=== PATIENT | female | born 1975 | race Caucasian/White ===

== ENCOUNTER 2016-05-31 08:10 | Observation (INO) | payer MEDICARE, MEDICAID ==
--- NOTE | 2016-05-31 08:44 | EDM.PDOC ---
[id number]: 05/31/16 08:38 Source of Information: Reports: Patient, EMS, Family History Limitations: Reports: No limitations - History of Present Illness INITIAL COMMENTS - FREE TEXT/NARRATIVE: 40-year-old female was walking along the edge of a wall heading to work when she accidentally stepped off the wall and fell onto her left side. The fall was about 4 feet and she fell onto a grassy but firm surface. She has localized pain over the left lateral chest wall where her elbow hit her side. No loss of consciousness, no neck pain back pain extremity pain, she has some pain with breathing but not short of breath. She is very anxious. Denies abdominal pain, nausea or vomiting. Onset: sudden Duration: Hour(s): (Within the last 2 hours) Location: Reports: chest Severity: moderate Worsens with: Reports: Breathing Associated Symptoms: Reports: denies other symptoms - Related Data Allergies Allergy/AdvReac Type Severity Reaction Status Date / Time No Known Allergies Allergy Verified 05/31/16 08:19 Home Meds: Home Meds Divalproex Sodium [Depakote] 500 mg PO BIDMEALS 05/31/16 [History] lamoTRIgine [LaMICtal] 200 mg PO BIDMEALS 05/31/16 [History] Past Medical History HEENT History: Reports: Impaired vision Neurological History: Reports: Seizure Other Neuro History: since age 1 Social & Family History - Tobacco Use Smoking Status *Q: Never Smoker Second Hand Smoke Exposure: No - Caffeine Use Caffeine Use: Reports: None - Recreational Drug Use Recreational Drug Use: No ED ROS GENERAL - Review of Systems Review Of Systems: See Below Constitutional: Denies: fever, chills HEENT: Reports: No symptoms Respiratory: Reports: Pleuritic Chest Pain Cardiovascular: Reports: Chest pain. Denies: Palpitations GI/Abdominal: Denies: Abdominal pain, Nausea, Vomiting : Reports: no symptoms Neurological: Reports: No Symptoms Psychiatric: Reports: Other (Has chronic cognitive disabilities) ED EXAM, GENERAL - Physical Exam Exam: See Below Exam Limited By: No limitations General Appearance: alert, anxious, mild distress (Appears uncomfortable) Neck: normal inspection, supple Respiratory/Chest: no respiratory distress, lungs clear, other (Localized chest wall pain laterally, no bruising or crepitus) Cardiovascular: regular rate, rhythm. No: tachycardia GI/Abdominal: soft, non tender Extremities: normal inspection Neurological: alert, oriented Psychiatric: anxious Skin Exam: Warm, Dry Course - Vital Signs Last Recorded V/S: Last Vital Signs Temp 97.6 F 05/31/16 11:40 Pulse 85 05/31/16 11:40 Resp 24 H 05/31/16 11:40 BP 118/77 05/31/16 11:40 Pulse Ox 98 05/31/16 11:40 - Orders/Labs/Meds Orders: Active Orders 24 hr Category Date Time Status Chest Abdomen Pelvis w Cont [CT] Stat Exams 05/31/16 09:20 Taken Ribs 2V w Chest Lt [CR] Stat Exams 05/31/16 08:43 Taken Medication Orders Acetaminophen (Tylenol) 650 mg PO Q4H PRN PRN Reason: Pain (Mild 1-3)/fever Divalproex Sodium (Divalproex Sodium) 500 mg PO BIDMEALS LOTUS Docusate Sodium (Colace) 100 mg PO BID PRN PRN Reason: Constipation Hydromorphone HCl (Dilaudid) 0.5 mg IVPUSH Q2H PRN PRN Reason: Pain Lactated Ringer's (Ringers, Lactated) 1,000 mls @ 125 mls/hr IV ASDIRECTED LOTUS Ibuprofen (Motrin) 600 mg PO Q6H PRN PRN Reason: Pain/Fever Ketorolac Tromethamine (Toradol) 30 mg IM Q6H PRN PRN Reason: Pain (moderate 4-6) Lamotrigine (Lamotrigine) 200 mg PO BIDMEALS LOTUS Lorazepam (Ativan) 0.5 mg IVPUSH Q2H PRN PRN Reason: Anxiety Magnesium Hydroxide (Milk Of Magnesia) 30 ml PO Q12H PRN PRN Reason: Constipation Ondansetron HCl (Zofran) 4 mg IV Q4H PRN PRN Reason: Nausea/Vomiting Oxycodone HCl (Oxycodone) 5 mg PO Q4H PRN PRN Reason: Pain (moderate 4-6) Polyethylene Glycol (Miralax) 17 gm PO DAILY PRN PRN Reason: Constipation Sodium Chloride (Saline Flush) 10 ml FLUSH ASDIRECTED PRN PRN Reason: Keep Vein Open Labs: Laboratory Tests 05/31/16 05/31/16 Range/Units 09:42 09:42 WBC 9.5 (4.5-11.0) K/uL RBC 4.51 (3.30-5.50) M/uL Hgb 13.8 (12.0-15.0) g/dL Hct 41.9 (36.0-48.0) % MCV 93 (80-98) fL MCH 31 (27-31) pg MCHC 33 (32-36) % Plt Count 248 (150-400) K/uL Neut % (Auto) 73 H (36-66) % Lymph % (Auto) 16 L (24-44) % [place] % (Auto) 10 H (2-6) % Eos % (Auto) 1 L (2-4) % Baso % (Auto) 0 (0-1) % Sodium 144 (140-148) mmol/L Potassium 4.0 (3.6-5.2) mmol/L Chloride 108 (100-108) mmol/L Carbon Dioxide 27 (21-32) mmol/L Anion Gap 8.6 (5.0-14.0) mmol/L BUN 18 (7-18) mg/dL Creatinine 0.9 (0.6-1.0) mg/dL Est Cr Clr Drug Dosing 73.27 mL/min Estimated GFR (MDRD) > 60 (>60) Glucose 127 H (74-106) mg/dL Calcium 8.6 (8.5-10.1) mg/dL Meds: Medications Generic Name Dose Route Start Last Admin Trade Name Freq PRN Reason Stop Dose Admin Acetaminophen 650 mg 05/31/16 13:46 Tylenol PO Q4H PRN Pain (Mild 1-3)/fever Divalproex Sodium 500 mg 05/31/16 17:00 Divalproex Sodium PO BIDMEALS LOTUS Docusate Sodium 100 mg 05/31/16 13:46 Colace PO BID PRN Constipation Hydromorphone HCl 0.5 mg 05/31/16 13:46 Dilaudid IVPUSH Q2H PRN Pain Lactated Ringer's 1,000 mls @ 125 mls/hr 05/31/16 13:46 Ringers, Lactated IV ASDIRECTED LOTUS Ibuprofen 600 mg 05/31/16 13:46 Motrin PO Q6H PRN Pain/Fever Ketorolac Tromethamine 30 mg 05/31/16 13:46 Toradol IM Q6H PRN Pain (moderate 4-6) Lamotrigine 200 mg 05/31/16 17:00 Lamotrigine PO BIDMEALS LOTUS Lorazepam 0.5 mg 05/31/16 13:46 Ativan IVPUSH Q2H PRN Anxiety Magnesium Hydroxide 30 ml 05/31/16 13:46 Milk Of Magnesia PO Q12H PRN Constipation Ondansetron HCl 4 mg 05/31/16 13:46 Zofran IV Q4H PRN Nausea/Vomiting Oxycodone HCl 5 mg 05/31/16 13:46 Oxycodone PO Q4H PRN Pain (moderate 4-6) Polyethylene Glycol 17 gm 05/31/16 13:46 Miralax PO DAILY PRN Constipation Sodium Chloride 10 ml 05/31/16 13:46 Saline Flush FLUSH ASDIRECTED PRN Keep Vein Open Discontinued Medications Generic Name Dose Route Start Last Admin Trade Name Freq PRN Reason Stop Dose Admin Hydromorphone HCl 0.5 mg 05/31/16 09:20 05/31/16 09:43 Dilaudid IVPUSH 05/31/16 09:21 0.5 mg ONETIME ONE Administration Hydromorphone HCl 0.5 mg 05/31/16 12:12 05/31/16 12:26 Dilaudid IVPUSH 05/31/16 12:13 0.5 mg ONETIME ONE Administration Sodium Chloride 75 mls @ 3.3 mls/sec 05/31/16 10:00 05/31/16 10:15 Normal Saline IV 3 mls/sec ASDIRECTED LOTUS Administration Sodium Chloride 1,000 mls @ 250 mls/hr 05/31/16 11:15 05/31/16 11:23 Normal Saline IV 250 mls/hr ASDIRECTED LOTUS Administration Iopamidol 110 ml 05/31/16 09:48 05/31/16 10:16 Isovue-300 (61%) IV 06/01/16 09:49 110 ml . DIRECTED PRN Administration RADIOLOGY EXAM Ondansetron HCl 4 mg 05/31/16 09:21 05/31/16 09:41 Zofran IVPUSH 05/31/16 09:22 4 mg ONETIME ONE Administration Ondansetron HCl 4 mg 05/31/16 12:12 05/31/16 12:22 Zofran IVPUSH 05/31/16 12:13 4 mg ONETIME ONE Administration Sodium Chloride 10 ml 05/31/16 09:19 Saline Flush FLUSH ASDIRECTED PRN Keep Vein Open Sodium Chloride 10 ml 05/31/16 09:48 05/31/16 09:54 Saline Flush FLUSH 05/31/16 09:49 10 ml ONETIME ONE Administration - Re-Assessments/Exams Free Text/Narrative Re-Assessment/Exam: 05/31/16 08:47 A chest x-ray with a focus on the left ribs was obtained. 05/31/16 09:28 Patient remained stable but uncomfortable. X-ray revealed a small pulmonary contusion laterally with likely at least 3 lateral rib fractures. Because of the apparent significant injury a CT scan of the chest abdomen and pelvis will follow. 05/31/16 10:58 CT scan confirms the fractures ribs 5 through 9. There is a "very small" hemopneumothorax and no other findings of injury. CBC and BMP were normal. Patient remained stable but uncomfortable. There is no need for hospitalization at this time unless the patient's parents are uncomfortable with caring for her and they want to try to take her home. She'll be given a sling for her left arm for comfort, 20 hydrocodone and 30 500 mg Naprosyn for pain control and should recheck Thursday or Thursday. 05/31/16 11:14 Tried to get the patient prepared for discharge and she just couldn't handle it well. She became pale, diaphoretic and very anxious. I don't think she'll be able to tolerate treatment on an outpatient basis. I discussed this with Dr. Millan of the hospitalist service and he agreed to see her to consider admission. Departure - Departure Time of Disposition: 13:42 Disposition: Admitted As Inpatient 64 Condition: fair Clinical Impression: Multiple rib fractures Qualifiers: Encounter type: initial encounter Fracture type: closed Laterality: left Qualified Code(s): S22.42XA - Multiple fractures of ribs, left side, initial encounter for closed fracture Left pulmonary contusion Qualifiers: Encounter type: initial encounter Qualified Code(s): S27.321A - Contusion of lung, unilateral, initial encounter - My Orders Last 24 Hours: My Active Orders 05/31/16 08:43 Ribs 2V w Chest Lt [CR] Stat 05/31/16 09:20 Chest Abdomen Pelvis w Cont [CT] Stat - Assessment/Plan Last 24 Hours: My Active Orders 05/31/16 08:43 Ribs 2V w Chest Lt [CR] Stat 05/31/16 09:20 Chest Abdomen Pelvis w Cont [CT] Stat
[2016-05-31] MEDS ORDERED: Sodium Chloride 0.9% 10 ML Syringe FLUSH PRN ×2 (09:19→13:46)
[2016-05-31] MEDS ORDERED: HYDROmorphone 0.5 MG/0.5 ML Syringe IVPUSH ONE ×2 (09:20→12:12)
[2016-05-31] MEDS ORDERED: Ondansetron 4 MG/2 ML SDV IVPUSH ONE ×2 (09:21→12:12)
[2016-05-31] MEDS ORDERED: Iopamidol 612 MG/ML 150 ML Bottle IV PRN (09:48)
[2016-05-31] MEDS ORDERED: Sodium Chloride 0.9% 10 ML Syringe FLUSH ONE (09:48)
[2016-05-31] MEDS ORDERED: Sodium Chloride 0.9% 75 ML IV SCH (10:00)
[2016-05-31] MEDS ORDERED: Sodium Chloride 0.9% 1,000 ML IV SCH (11:15)
--- NOTE | 2016-05-31 13:12 | PCM.HP ---
H&P History of Present Illness - General Date of Service: 05/31/16 Admit Problem/Dx: Admission Diagnosis/Problem Admission Diagnosis/Problem Fracture of multiple ribs Source of Information: Patient, Family, Provider, RN notes reviewed History Limitations: Reports: No limitations - History of Present Illness Initial Comments - Free Text/Narative: This patient is a 40-year-old woman who is admitted through the emergency department observation status for further management of 4 left-sided rib fractures as well as a small hydropneumothorax. She experienced a 4 foot fall early this morning with severe pain. She does have a history of seizure disorder but adamantly denies that she had any seizure, simply that she fell. CT scan of the chest abdomen shows evidence of for left-sided rib fractures 6 through 9. Associated with this is a small hydropneumothorax. Because of severe pain she's unable to be cared for at home, she became vagal when they attempted to give her up. - Related Data Allergies/Adverse Reactions: Allergies Allergy/AdvReac Type Severity Reaction Status Date / Time No Known Allergies Allergy Verified 05/31/16 08:19 Home Medications: Home Meds Divalproex Sodium [Depakote] 500 mg PO BIDMEALS 05/31/16 [History] lamoTRIgine [LaMICtal] 200 mg PO BIDMEALS 05/31/16 [History] Past Medical History HEENT History: Reports: Impaired vision Neurological History: Reports: Seizure Other Neuro History: since age 1 Social & Family History - Tobacco Use Smoking Status *Q: Never Smoker Second Hand Smoke Exposure: No - Caffeine Use Caffeine Use: Reports: None - Recreational Drug Use Recreational Drug Use: No H&P Review of Systems - Review of Systems: Review Of Systems: See Below General: Reports: no symptoms HEENT: Reports: no symptoms Pulmonary: Reports: No Symptoms Cardiovascular: Reports: chest pain (Left lateral chest wall). Denies: palpitations, dyspnea on exertion, orthopnea, PND, edema, lightheadedness, syncope Gastrointestinal: Reports: No symptoms Genitourinary: Reports: no symptoms Musculoskeletal: Reports: no symptoms Skin: Reports: no symptoms Psychiatric: Reports: no symptoms Neurological: Reports: No Symptoms Hematologic/Lymphatic: Reports: no symptoms Immunologic: Reports: no symptoms Exam - Exam Exam: See Below - Vital Signs Vital Signs: Last Vital Signs Temp 97.2 F 05/31/16 08:14 Pulse 82 05/31/16 10:44 Resp 15 05/31/16 10:44 BP 118/73 05/31/16 10:44 Pulse Ox 93 L 05/31/16 10:44 Weight: 160 lb - Exam General: alert, oriented, cooperative, moderate distress HEENT: Conjunctiva clear, EOMI, Hearing intact, Mucosa moist & pink, Nares patent, Normal nasal septum, Posterior pharynx clear, Pupils equal, Pupils reactive Neck: supple, trachea midline, 2 Lungs: Clear to auscultation, Normal respiratory effort Cardiovascular: regular rate, regular rhythm, normal S1, normal S2. No: systolic murmur, diastolic murmur Abdomen: normal bowel sounds, soft Back Exam: normal inspection, full range of motion, NT Extremities: normal inspection, normal pulses. No: edema Skin: warm, dry, intact Neurological: cranial nerves intact, strength equal bilateral, normal speech, normal tone, sensation intact. No: focal deficit Neuro Extensive - Mental Status: alert, oriented x3, normal mood/affect, memory intact. No: normal cognition (Congenital cognitive impairment) - Patient Data Lab Results last 24 hrs: Laboratory Results - last 24 hr 05/31/16 05/31/16 Range/Units 09:42 09:42 WBC 9.5 (4.5-11.0) K/uL RBC 4.51 (3.30-5.50) M/uL Hgb 13.8 (12.0-15.0) g/dL Hct 41.9 (36.0-48.0) % MCV 93 (80-98) fL MCH 31 (27-31) pg MCHC 33 (32-36) % Plt Count 248 (150-400) K/uL Neut % (Auto) 73 H (36-66) % Lymph % (Auto) 16 L (24-44) % [place] % (Auto) 10 H (2-6) % Eos % (Auto) 1 L (2-4) % Baso % (Auto) 0 (0-1) % Sodium 144 (140-148) mmol/L Potassium 4.0 (3.6-5.2) mmol/L Chloride 108 (100-108) mmol/L Carbon Dioxide 27 (21-32) mmol/L Anion Gap 8.6 (5.0-14.0) mmol/L BUN 18 (7-18) mg/dL Creatinine 0.9 (0.6-1.0) mg/dL Est Cr Clr Drug Dosing 73.27 mL/min Estimated GFR (MDRD) > 60 (>60) Glucose 127 H (74-106) mg/dL Calcium 8.6 (8.5-10.1) mg/dL Result Diagrams: 05/31/16 09:42 05/31/16 09:42 *Q Meaningful Use (ADM) - VTE *Q VTE Criteria *Q: - VTE Risk Assess *Q Each Risk Factor Represents 1 Point: Age 41 - 59 years Total Score 1 Point Risk Factors: 1 Each Risk Factor Represents 2 Points: None Total Score 2 Point Risk Factors: 0 Each Risk Factor Represents 3 Points: None Total Score 3 Point Risk Factors: 0 Each Risk Factor Represents 5 Points: None Total Score 5 Point Risk Factors: 0 Venous Thromboembolism Risk Factor Score *Q: 1 - Stroke *Q Stroke Criteria *Q: - AMI *Q AMI Criteria *Q: Problem List Initiated/Reviewed/Updated: Yes Orders Last 24hrs: Active Orders 24 hr Category Date Time Status Patient Status Manage Transfer [TRANSFER] Routine ADT 05/31/16 12:51 Ordered Chest Abdomen Pelvis w Cont [CT] Stat Exams 05/31/16 09:20 Taken Ribs 2V w Chest Lt [CR] Stat Exams 05/31/16 08:43 Taken Iopamidol [Isovue-300 (61%)] Med 05/31/16 09:48 Active 110 ml IV . DIRECTED PRN Sodium Chloride 0.9% [Normal Saline] 1,000 ml Med 05/31/16 11:15 Active IV ASDIRECTED Sodium Chloride 0.9% [Normal Saline] 75 ml Med 05/31/16 10:00 Active IV ASDIRECTED Sodium Chloride 0.9% [Saline Flush] Med 05/31/16 09:19 Active 10 ml FLUSH ASDIRECTED PRN DME for Discharge [COMM] Stat Oth 05/31/16 11:03 Ordered Saline Lock Insert [OM.PC] Routine Oth 05/31/16 09:19 Ordered Resuscitation Status Routine Resus Stat 05/31/16 12:53 Ordered Medication Orders Sodium Chloride (Normal Saline) 75 mls @ 3.3 mls/sec IV ASDIRECTED LOTUS Last Admin: 05/31/16 10:15 Dose: 3 mls/sec Sodium Chloride (Normal Saline) 1,000 mls @ 250 mls/hr IV ASDIRECTED LOTUS Last Admin: 05/31/16 11:23 Dose: 250 mls/hr Iopamidol (Isovue-300 (61%)) 110 ml IV . DIRECTED PRN PRN Reason: RADIOLOGY EXAM Stop: 06/01/16 09:49 Last Admin: 05/31/16 10:16 Dose: 110 ml Sodium Chloride (Saline Flush) 10 ml FLUSH ASDIRECTED PRN PRN Reason: Keep Vein Open Assessment/Plan Comment:: ASSESSMENT AND PLAN TRAUMA RESULTING IN 4 LEFT RIB FRACTURES AND A SMALL HYDROPNEUMOTHORAX-patient experiencing severe pain related to her chest wall injury, respiratory status is stable. -Pain medication as needed -Repeat chest x-ray in a.m. for followup of small hydropneumothorax -Consult Dr. Youssef in a.m. for surgical followup SEIZURE DISORDER -Continue outpatient medical regimen CONGENITAL COGNITIVE IMPAIRMENT MAINTENANCE ISSUES -DVT prophylaxis; SCUDs -GI prophylaxis; not indicated -Nichols catheter; not indicated -Nutrition; regular diet -Nicotinic dependence; not required CODE STATUS-FULL CODE ADMISSION STATUS-this patient will be admitted to observation status, expect no more than a one night hospital stay for evaluation and management of problems as outlined above. DISPOSITION-anticipate discharge to home after the hospital stay. PRIMARY CARE PROVIDER-
[2016-05-31] MEDS ORDERED: Polyethylene Glycol 3350 Powder 17 GM Packet PO PRN (13:46)
[2016-05-31] MEDS ORDERED: Magnesium Hydroxide 400 MG/5 ML Susp 30 ML Cup PO PRN (13:46)
[2016-05-31] MEDS ORDERED: Docusate Sodium 100 MG Cap PO PRN (13:46)
[2016-05-31] MEDS ORDERED: Ibuprofen 600 MG Tab PO PRN (13:46)
[2016-05-31] MEDS ORDERED: Acetaminophen 325 MG Tab PO PRN (13:46)
[2016-05-31] MEDS ORDERED: Ketorolac 30 MG/ML SDV IM PRN (13:46)
[2016-05-31] MEDS: Lactated Ringers 1,000 ML IV SCH ×2 (14:41→22:54)
[2016-05-31] MEDS: HYDROmorphone 0.5 MG/0.5 ML Syringe IVPUSH PRN ×2 (17:15→19:34)
[2016-05-31] MEDS: lamoTRIgine 100 MG Tab PO SCH (17:16)
[2016-05-31] MEDS: Divalproex Sodium Delayed-Release 250 MG Tab.CR PO SCH (17:16)
[2016-05-31] MEDS: Ondansetron 4 MG/2 ML SDV IV PRN (17:43)
[2016-05-31] MEDS: Ketorolac 30 MG/ML SDV IVPUSH PRN (20:14)
[2016-05-31] MEDS: oxyCODONE 5 MG Tab PO PRN (22:48)
[2016-05-31] MEDS: LORazepam 2 MG/ML MDV IVPUSH PRN (22:49)
[2016-06-01] MEDS: Ketorolac 30 MG/ML SDV IVPUSH PRN ×3 (03:52→16:19)
[2016-06-01] MEDS: oxyCODONE 5 MG Tab PO PRN ×2 (03:52→08:23)
[2016-06-01] MEDS: LORazepam 2 MG/ML MDV IVPUSH PRN ×2 (09:11→22:39)
[2016-06-01] MEDS: Divalproex Sodium Delayed-Release 250 MG Tab.CR PO SCH ×2 (09:15→20:12)
[2016-06-01] MEDS: lamoTRIgine 100 MG Tab PO SCH ×2 (09:15→20:12)
[2016-06-01] MEDS ORDERED: fentaNYL 12 MCG/HR Transdermal Patch TRDERM SCH (12:00)
[2016-06-01] MEDS: Acetaminophen/oxyCODONE 325-5 MG Tab PO PRN ×3 (12:55→22:38)
--- NOTE | 2016-06-01 15:18 | PCM.PN ---
- General Info Date of Service: 06/01/16 Functional Status: Reports: pain controlled, tolerating diet, ambulating, urinating - Review of Systems General: Reports: No Symptoms Pulmonary: Reports: shortness of breath. Denies: cough, sputum, hemoptysis, wheezing Cardiovascular: Reports: No Symptoms Gastrointestinal: Reports: No symptoms Systems Review Comment:: This patient has remained fairly stable since admission yesterday, continues to experience significant chest wall pain related to her fractures. Chest x-ray from this morning shows no evidence of pneumothorax and only a small amount of fluid within the left chest. Vital signs have been stable and she has remained afebrile. - Patient Data Vitals - most recent: Last Vital Signs Temp 97.5 F 06/01/16 14:28 Pulse 88 06/01/16 14:28 Resp 18 06/01/16 14:28 BP 120/55 L 06/01/16 14:28 Pulse Ox 94 L 06/01/16 14:28 Weight - most recent: 192 lb 14.472 oz I&O - last 24 hours: Intake & Output 06/01/16 06/01/16 06/01/16 06:59 14:59 22:59 Intake Total 1641 Balance 1641 Lab Results last 24 hrs: Laboratory Results - last 24 hr 06/01/16 06/01/16 Range/Units 04:39 04:39 WBC 10.7 (4.5-11.0) K/uL RBC 4.31 (3.30-5.50) M/uL Hgb 13.2 (12.0-15.0) g/dL Hct 40.7 (36.0-48.0) % MCV 94 (80-98) fL MCH 31 (27-31) pg MCHC 32 (32-36) % Plt Count 252 (150-400) K/uL Neut % (Auto) 52 (36-66) % Lymph % (Auto) 38 (24-44) % [place] % (Auto) 9 H (2-6) % Eos % (Auto) 1 L (2-4) % Baso % (Auto) 0 (0-1) % Sodium 143 (140-148) mmol/L Potassium 4.0 (3.6-5.2) mmol/L Chloride 105 (100-108) mmol/L Carbon Dioxide 30 (21-32) mmol/L Anion Gap 8.5 (5.0-14.0) mmol/L BUN 9 (7-18) mg/dL Creatinine 0.7 (0.6-1.0) mg/dL Est Cr Clr Drug Dosing 98.01 mL/min Estimated GFR (MDRD) > 60 (>60) Glucose 89 (74-106) mg/dL Calcium 8.8 (8.5-10.1) mg/dL Med Orders - Current: Current Medications Acetaminophen (Tylenol) 650 mg PO Q4H PRN PRN Reason: Pain (Mild 1-3)/fever Last Admin: 06/01/16 09:10 Dose: 650 mg Divalproex Sodium (Divalproex Sodium) 500 mg PO BID@0900,1800 [facility] Last Admin: 06/01/16 09:15 Dose: 500 mg Docusate Sodium (Colace) 100 mg PO BID PRN PRN Reason: Constipation Fentanyl (Duragesic) 12 mcg TRDERM Q72H [facility] Last Admin: 06/01/16 12:55 Dose: 12 mcg Hydromorphone HCl (Dilaudid) 0.5 mg IVPUSH Q2H PRN PRN Reason: Pain Last Admin: 05/31/16 19:34 Dose: 0.5 mg Ibuprofen (Motrin) 600 mg PO Q6H PRN PRN Reason: Pain/Fever Ketorolac Tromethamine (Toradol) 30 mg IVPUSH Q6H PRN PRN Reason: Pain (moderate 4-6) Stop: 06/05/16 19:53 Last Admin: 06/01/16 10:23 Dose: 30 mg Lamotrigine (Lamotrigine) 200 mg PO BID@0900,1800 [facility] Last Admin: 06/01/16 09:15 Dose: 200 mg Lorazepam (Ativan) 0.5 mg IVPUSH Q2H PRN PRN Reason: Anxiety Last Admin: 06/01/16 09:11 Dose: 0.5 mg Magnesium Hydroxide (Milk Of Magnesia) 30 ml PO Q12H PRN PRN Reason: Constipation Fentanyl Patch Check 0 each TOP DAILY [facility] Ondansetron HCl (Zofran) 4 mg IV Q4H PRN PRN Reason: Nausea/Vomiting Last Admin: 05/31/16 17:43 Dose: 4 mg Oxycodone/Acetaminophen (Percocet 325-5 Mg) 1 - 2 tab PO Q4H PRN PRN Reason: PIAN Last Admin: 06/01/16 12:55 Dose: 2 tab Polyethylene Glycol (Miralax) 17 gm PO DAILY PRN PRN Reason: Constipation Sodium Chloride (Saline Flush) 10 ml FLUSH ASDIRECTED PRN PRN Reason: Keep Vein Open Discontinued Medications Hydromorphone HCl (Dilaudid) 0.5 mg IVPUSH ONETIME ONE Stop: 05/31/16 09:21 Last Admin: 05/31/16 09:43 Dose: 0.5 mg Hydromorphone HCl (Dilaudid) 0.5 mg IVPUSH ONETIME ONE Stop: 05/31/16 12:13 Last Admin: 05/31/16 12:26 Dose: 0.5 mg Sodium Chloride (Normal Saline) 75 mls @ 3.3 mls/sec IV ASDIRECTED [facility] Last Admin: 05/31/16 10:15 Dose: 3 mls/sec Sodium Chloride (Normal Saline) 1,000 mls @ 250 mls/hr IV ASDIRECTED [facility] Last Admin: 05/31/16 11:23 Dose: 250 mls/hr Lactated Ringer's (Ringers, Lactated) 1,000 mls @ 125 mls/hr IV ASDIRECTED [facility] Last Admin: 05/31/16 22:54 Dose: 125 mls/hr Ibuprofen (Motrin) 600 mg PO Q6H PRN PRN Reason: Pain/Fever Iopamidol (Isovue-300 (61%)) 110 ml IV . DIRECTED PRN PRN Reason: RADIOLOGY EXAM Stop: 06/01/16 09:49 Last Admin: 05/31/16 10:16 Dose: 110 ml Ketorolac Tromethamine (Toradol) 30 mg IM Q6H PRN PRN Reason: Pain (moderate 4-6) Ondansetron HCl (Zofran) 4 mg IVPUSH ONETIME ONE Stop: 05/31/16 09:22 Last Admin: 05/31/16 09:41 Dose: 4 mg Ondansetron HCl (Zofran) 4 mg IVPUSH ONETIME ONE Stop: 05/31/16 12:13 Last Admin: 05/31/16 12:22 Dose: 4 mg Oxycodone HCl (Oxycodone) 5 mg PO Q4H PRN PRN Reason: Pain (moderate 4-6) Last Admin: 06/01/16 08:23 Dose: 5 mg Sodium Chloride (Saline Flush) 10 ml FLUSH ASDIRECTED PRN PRN Reason: Keep Vein Open Sodium Chloride (Saline Flush) 10 ml FLUSH ONETIME ONE Stop: 05/31/16 09:49 Last Admin: 05/31/16 09:54 Dose: 10 ml - Exam General: alert, cooperative, mild distress Lungs: Clear to auscultation, Normal respiratory effort Cardiovascular: Regular Rate, Regular Rhythm, No Murmurs Abdomen: bowel sounds present, soft, no tenderness, no distension Extremities: no edema Skin: warm, dry, intact - Problem List Review Problem List Initiated/Reviewed/Updated: Yes - My Orders Last 24 Hours: My Active Orders 05/31/16 19:54 Ketorolac [Toradol] 30 mg IVPUSH Q6H PRN 06/01/16 05:11 Chest 2V [CR] AM 06/01/16 15:15 Convert IV to Saline Lock [OM.PC] Routine 06/06/16 02:00 Ibuprofen [Motrin] 600 mg PO Q6H PRN - Plan Plan:: ASSESSMENT AND PLAN TRAUMA RESULTING IN 4 LEFT RIB FRACTURES AND A SMALL HYDROPNEUMOTHORAX-patient experiencing severe pain related to her chest wall injury, respiratory status is stable. -Pain medication as needed -12 mcg fentanyl patch initiated today by Dr. Youssef -Repeat chest x-ray in a.m. for followup of small hydropneumothorax -Surgical followup per Dr. Youssef -Incentive spirometer SEIZURE DISORDER -Continue outpatient medical regimen CONGENITAL COGNITIVE IMPAIRMENT MAINTENANCE ISSUES -DVT prophylaxis; SCUDs -GI prophylaxis; not indicated -Nichols catheter; not indicated -Nutrition; regular diet -Nicotinic dependence; not required CODE STATUS-FULL CODE ADMISSION STATUS-this patient will be admitted to observation status, expect no more than a one night hospital stay for evaluation and management of problems as outlined above. DISPOSITION-anticipate discharge to home after the hospital stay. PRIMARY CARE PROVIDER-
[2016-06-02] MEDS: Ketorolac 30 MG/ML SDV IVPUSH PRN (00:50)
[2016-06-02] MEDS: Acetaminophen/oxyCODONE 325-5 MG Tab PO PRN ×2 (05:22→10:24)
[2016-06-02] MEDS: Ondansetron 4 MG/2 ML SDV IV PRN (08:18)
[2016-06-02 08:22] VITALS: BP 131/75
[2016-06-02] MEDS ORDERED: fentaNYL 12 MCG/HR Transdermal Patch TRDERM SCH (08:30)
[2016-06-02] MEDS: Divalproex Sodium Delayed-Release 250 MG Tab.CR PO SCH (08:59)
[2016-06-02] MEDS: lamoTRIgine 100 MG Tab PO SCH (08:59)
[2016-06-02] MEDS ORDERED: FENTANYL PATCH CHECK TOP SCH (09:00)
--- NOTE | 2016-06-02 09:33 | CR ---
Chest 2V HISTORY: Follow-up pneumothorax. COMPARISON: Chest x-ray 06/01/[address] scan 05/31/2016. FINDINGS: Very small left apical pneumothorax with small left-sided effusion. Tiny right-sided effus ion. This is not significantly changed from yesterday's chest radiograph no new infiltrates.
--- NOTE | 2016-06-02 09:46 | CR ---
Chest 2V HISTORY: Follow-up small left hydropneumothorax on previous CT scan. COMPARISON: Prior CT scan. FINDINGS: Tiny left apical pneumothorax with small left-sided effusion. Tiny right-sided effusion. N o dense infiltrates seen.
--- NOTE | 2016-06-02 09:51 | CR ---
Ribs 2V w Chest Lt HISTORY: Fall COMPARISON: None FINDINGS: Multiple left-sided rib fractures. This appears to involve the left sixth through ninth ri bs. Probable tiny left apical pneumothorax. Minimal atelectatic change or contusion left lung base. Right lung is clear.
--- NOTE | 2016-06-02 14:26 | CONS ---
DATE OF SERVICE: 06/01/2016 REFERRING PHYSICIAN: CONSULTING PHYSICIAN: Grzegorz Youssef MD The patient admitted overnight after being involved in a fall, which she developed lateral fractures, ribs 6, 7, 8, and 9. There are some subcutaneous emphysema and a small hemopneumothorax. Overnight, this appears to have gotten even smaller and just having still quite a bit in the way of pain. She is presently receiving Toradol IV push and Dilaudid IV, along with Tylenol and oxycodone p.r.n. I think we will go over to adding a fentanyl patch today and then go with Percocet and try to limit to the IV medication today. Otherwise, work with incentive spirometer and repeat a chest x-ray tomorrow. Grzegorz Youssef MD /[id number]
--- NOTE | 2016-06-03 01:32 | DISCH ---
ADMISSION DIAGNOSES: Multiple rib fractures, left pulmonary contusion, seizure disorder and impaired vision. DISCHARGE DIAGNOSES: 1. Left-sided rib fractures, rib 6 through 9. 2. Small hydro pneumothorax. HISTORY: Isaac is a 40-year-old woman who was admitted through the emergency room, observation status for management for left-sided rib fractures, associated with a small hydro pneumothorax. She had a fore foot fall early this morning with severe pain. She does have a history of seizure disorder, but denied having any seizure. A scan of the chest and abdomen was done showing the left-sided rib fractures 6 through 9 and she was admitted on 05/31/2016 for observation. REVIEW OF SYSTEMS: CONSTITUTIONAL: Denies any fever, chills, night sweats, or fatigue. HEENT: Negative. NECK: Negative. Full range of motion. CARDIOVASCULAR: No chest pain, murmur, fast or irregular heart beat. LUNGS: Denies shortness of breath or cough but states that she does have some cough. She has pain in her left rib cage. GI: No nausea, vomiting, diarrhea, constipation, heart burn, red or black stools. MUSCULOSKELETAL: Has some pain in her left rib cage, otherwise she denies any joint pain. SKIN/BREASTS: Negative. NEURO: No headaches, dizziness, loss of coordination. PSYCHIATRIC: Negative for depression. ENDOCRINE: Denies any excessive fatigue. HEMOLYTIC/LYMPHATIC: Negative for any abnormal bleeding, bruising, or lymph node enlargement. Remainder of review of systems negative for any pertinent positives and negatives. OBJECTIVE: GENERAL: Isaac Florence is a 40-year-old female. Height is 5 feet 6 inches. Weight is 192 pounds. VITAL SIGNS: TPR is 97.8, 70, 18, blood pressure 131/75. HEENT: Negative. NECK: Supple. HEART: Regular rate and rhythm. LUNGS: Clear. There is some guarding with breathing. ABDOMEN: Soft and nontender. EXTREMITIES: Negative. NEURO: Cranial nerves 2 through 12 intact. AND BREASTS: Deferred. MUSCULOSKELETAL: Negative. PSYCHIATRIC: Judgment, insight, orientation to time, recent remote memory, mood and affect appropriate. DISPOSITION: Discharged to home. CONDITION: Stable and improving. FOLLOWUP APPOINTMENT: With Anna Topete PA-C on 06/09/2016 at 10:00 a.m. with chest x-ray, PA and lateral before appointment. HOME MEDICATION: 1. Percocet 5/325 mg 1 to 2 every 4 hours p.r.n. pain #50. 2. Colace 100 mg oral twice daily #100. 3. Ibuprofen 600 mg oral q.6 hours as needed for pain #100. 4. Fentanyl 12 mcg transdermal patch, take off Thursday06/06/2016. 5. She is to resume taking her home medication of Lamictal 200 mg oral twice daily with meals. DISCHARGE INSTRUCTIONS: Diet after discharge: Usual diet as tolerated. Drink 8 to 10 glasses of water a day. Activity as tolerated. Driving, do not drive on pain medication. Shower bathing, may shower. Notify provider if any fever, increased pain, nausea, or vomiting. SPECIAL INSTRUCTION: Use incentive spirometer 10 times every hour while awake.
[2016-06-06] MEDS ORDERED: Ibuprofen 600 MG Tab PO PRN (02:00)
== END 2016-06-02 12:20 | disposition home or self-care (01) ==
LOC: JP.ED 08:10 → JP.MS 12:51
PROVIDERS: ADMIT Hospitalist; ATTEND Hospitalist
DX: S22.42XA Multiple fractures of ribs, left side, initial encounter for closed fracture (principal); J93.83 Other pneumothorax; W19.XXXA Unspecified fall, initial encounter; Z79.899 Other long term (current) drug therapy
CPT/HCPCS: 36415; 71020; 71101; 71260; 74177; 80048; 85025; 94762; 96361; 96374; 96375; 96376; 99219; 99224; 99284; 99285; A9270; G0378; J1170; J1885; J2060; J2405; J7030; J7040; J7050; J7120

== ENCOUNTER 2021-09-19 09:33 | Day surgery (SDC) | payer MEDICARE, MEDICAID ==
[2021-09-19] MEDS ORDERED: Lactated Ringers 1,000 ML IV SCH (11:00)
[2021-09-19] MEDS ORDERED: Midazolam 1 MG/ML 2 ML SDV ONE (11:07)
[2021-09-19] MEDS ORDERED: fentaNYL 100 MCG/2 ML SDV ONE (11:07)
[2021-09-19] MEDS ORDERED: Propofol 200 MG/20 ML SDV ONE (11:07)
[2021-09-19 13:17] VITALS: BP 114/62; PULSE 67
== END 2021-09-19 13:31 | disposition home or self-care (01) ==
LOC: JP.SDS 09:33
PROVIDERS: ATTEND Family Medicine
DX: Z12.11 Encounter for screening for malignant neoplasm of colon (principal); F99 Mental disorder, not otherwise specified; Z91.040 Latex allergy status; Z98.890 Other specified postprocedural states
CPT/HCPCS: G0121; J2250; J2704; J3010; J7120